=== PATIENT | female | born 1960 | race Caucasian/White ===

== ENCOUNTER 2021-12-28 11:37 | Emergency (ER) | payer OTHER | END 2021-12-28 14:17 | disposition home or self-care (01) | LOC: EDBD → JP.ED 11:37 → MERGE 11:37 → JP.ED 14:17 | DX: I10 Essential (primary) hypertension (principal); Z91.14 Patient's other noncompliance with medication regimen; Z88.5 Allergy status to narcotic agent | CPT/HCPCS: 36415; 71046; 71046-26; 80053; 84484; 85025; 93005; 99282; 99285-25 ==

== ENCOUNTER 2022-08-27 15:10 | Emergency (ER) | payer OTHER ==
[2022-08-27] MEDS ORDERED: Aspirin 81 MG Tab.Chew PO ONE (15:45)
[2022-08-27] MEDS ORDERED: Nitroglycerin 0.4 MG Tab.SL SL ONE (15:46)
[2022-08-27 16:24] LABS: ESTIMATED GFR 102 mL/min (>60)
[2022-08-27] MEDS ORDERED: amLODIPine 5 MG Tab PO ONE (16:51)
== END 2022-08-27 18:23 | disposition home or self-care (01) ==
LOC: JP.ED 15:10
DX: R07.89 Other chest pain (principal); I10 Essential (primary) hypertension; Z88.5 Allergy status to narcotic agent; Z79.899 Other long term (current) drug therapy
CPT/HCPCS: 36415; 71045; 80048; 81001; 84484; 93005; 99285; A9270